=== PATIENT | female | born 1945 | race Caucasian/White ===

== ENCOUNTER 2021-02-25 17:49 | Observation (INO) | payer MEDICARE, BC, SELFPAY ==
[2021-02-25 20:10] VITALS: BP 160/57; PULSE 77; RESP 17; TEMP 36.6; O2SAT 99; BMI 37.0
[2021-02-25 20:47] LABS: Microscopic, Urine URINE MICROSCOPIC (MICROSCOPIC)
[2021-02-25 20:49] LABS: Appearance,Urine CLOUDY (Clear); Bilirubin,Urine Negative (Negative); Blood, Urine 3+ (Negative); Color,Urine YELLOW (Yellow); Glucose,Urine (UA) Negative (Negative); Ketones,Urine Negative (Negative); Leukocyte Esterase,Urine 2+ (Negative); Nitrate,Urine Negative (Negative); PH,Urine 6.5 (5.0-8.5); Protein,Urine 1+ (Negative); Urobilinogen,Urine 0.2 EU/dl (0.2)
--- NOTE | 2021-02-25 20:53 | HMH.EDGENADL ---
ED Disposition Clinical Impression: Right lower quadrant pain, Appendicolith, Cystitis Anemia Qualifiers: Anemia type: unspecified type Qualified Code(s): D64.9 - Anemia, unspecified Disposition: Admitted as Observation Condition on Discharge: Good - Critical Care Critical Care Time: No Attestation: On 02/25/21, the high probability of a clinically significant, sudden or life threatening deterioration of the following system(s) required my full and direct attention, intervention and personal management. The time I documented below is in addition to time spent performing reported procedures but includes the following listed in this critical care notation. Medical Decision Making - Regino Inquiry Pt receiving controlled substance: No Vital Signs: 02/25/21 20:10 02/25/21 22:15 02/25/21 23:00 Temperature 97.9 F Temperature Source Oral Pulse Rate 76 73 Pulse Rate [Right] 77 Respiratory Rate 17 Blood Pressure 152/53 H 155/65 H Blood Pressure [Right Arm] 160/57 H Blood Pressure Mean [Right Arm] 91 Blood Pressure Source [Right Arm] Automatic Cuff 02 Sat by Pulse Oximetry 99 93 L 100 Oxygen Delivery Method Room Air - Lab Data Lab Results 02/25/21 20:20: Urine Color Yellow, Urine Appearance Cloudy, Urine pH 6.5, Ur Specific [place] 1.010, Urine Protein 1+, Urine Glucose (UA) Negative, Urine Ketones Negative, Urine Blood 3+, Urine Nitrate Negative, Urine Bilirubin Negative, Urine Urobilinogen 0.2, Ur Leukocyte Esterase 2+ A, Urine RBC Tntc, Urine WBC Tntc, Ur Squamous Epith Cells Occasional, Urine Bacteria Trace 02/25/21 21:17: WBC 5.5, RBC 2.62 L, Hgb 7.7 L, Hct 24.4 L, MCV 92.9, MCH 29.2, MCHC 31.5 L, RDW 14.4, Plt Count 430 H, MPV 7.3 L, Neut % (Auto) 59.7, Lymph % (Auto) 27.2, [place] % (Auto) 7.2, Eos % (Auto) 5.1, Baso % (Auto) 0.9, Neut # (Auto) 3.3, Lymph # (Auto) 1.5, [place] # (Auto) 0.4, Eos # (Auto) 0.3, Baso # (Auto) 0.1 02/25/21 21:17: Sodium 125 L, Potassium 4.3, Chloride 90 L, Carbon Dioxide 28, Anion Gap 11.3, BUN 27 H, Creatinine 1.20 H, Estimated Creat Clear 62, Estimated GFR 44 L, Est GFR ( Amer) 53 L, Glucose 305 H, Calcium 8.8, Total Bilirubin 0.4, AST 35, ALT 13, Alkaline Phosphatase 46, Total Protein 6.1 L, Albumin 3.1 L, Globulin 3.0, Albumin/Globulin Ratio 1.0 L, Lipase 205 02/26/21 01:11: SARS-CoV-2 (PCR) Not detected, Influenza A Untype (PCR) Not detected, Influenza Type B (PCR) Not detected Result diagrams: 02/25/21 21:17 02/25/21 21:17 Orders (Tests/Meds): ED MEDICATIONS Generic Name Dose Route Start Last Admin Trade Name Freq PRN Reason Stop Dose Admin Ertapenem 1 gm/ Sodium 50 mls @ 100 mls/hr 02/25/21 22:30 02/25/21 22:49 Chloride IV 03/11/21 22:29 100 mls/hr Q24H HAYLEY Administration ORDERS Category Date Time Status Urine Culture Stat Micro 02/25/21 20:20 Received - CT Data CT Scan: Abdomen, Pelvis Time Received: 22:[address] Reviewed: Yes: I have viewed the radiologist's interpretation Findings Narrative: PROCEDURE INFORMATION: Exam: CT Abdomen And Pelvis Without Contrast Exam date and time: 02/25/2021 9:05 PM Age: 75 years old Clinical indication: Other: Hematuria; Prior surgery; Surgery date: 6+ months; Surgery type: Gb, hysterectomy, hernia, vascular stents; Additional info: Hematuria, lower abdo pain, stage 3 rf TECHNIQUE: Imaging protocol: Computed tomography of the abdomen and pelvis without contrast. Radiation optimization: All CT scans at this facility use at least one of these dose optimization techniques: automated exposure control; mA and/or kV adjustment per patient size (includes targeted exams where dose is matched to clinical indication); or iterative reconstruction. COMPARISON: No relevant prior studies available. FINDINGS: Lungs: No mass/infiltrate at either lung base. No pleural effusion. Prominent coronary artery calcification. There is atheromatous calcification of the
[2021-02-25 20:59] LABS: Bacteria,Urine Trace /lpf; RBC,Urine TNTC #/hpf (0-3); Squamous Epithelial Cell,Urine Occasional #/hpf (0-5); WBC,Urine TNTC #/hpf (0-3)
--- NOTE | 2021-02-25 21:05 | CT_ITS ---
PROCEDURE INFORMATION: Exam: CT Abdomen And Pelvis Without Contrast Exam date and time: 02/25/2021 9:05 PM Age: 75 years old Clinical indication: Other: Hematuria; Prior surgery; Surgery date: 6+ months; Surgery type: Gb, hysterectomy, hernia, vascular stents; Additional info: Hematuria, lower abdo pain, stage 3 rf TECHNIQUE: Imaging protocol: Computed tomography of the abdomen and pelvis without contrast. Radiation optimization: All CT scans at this facility use at least one of these dose optimization techniques: automated exposure control; mA and/or kV adjustment per patient size (includes targeted exams where dose is matched to clinical indication); or iterative reconstruction. COMPARISON: No relevant prior studies available. FINDINGS: Lungs: No mass/infiltrate at either lung base. No pleural effusion. Prominent coronary artery calcification. There is atheromatous calcification of the fibroannulus of the aortic and mitral valves. Atheromatous calcification of the descending thoracic aorta. Liver: The liver is normal in size and attenuation. No intrahepatic biliary dilitation. Gallbladder and bile ducts: Cholecystectomy noted. No evidence of extrahepatic biliary dilatation. Pancreas: Normal. No ductal dilation. Spleen: Normal. No splenomegaly. Adrenal glands: Normal. No mass. Kidneys and ureters: Normal. No hydronephrosis. Stomach and bowel: Unremarkable. No obstruction. No mucosal thickening. Small bowel mesentery is normal. Appendix: There is a calcific density identified at the base of the appendix which could represent appendicoliths that said, the appendix does not appear enlarged. There is no evidence of infiltration of mesoappendix. Intraperitoneal space: Unremarkable. No free air. No significant fluid collection. Vasculature: Prominent atheromatous change of the abdominal aorta, portions of the visceral arteries, iliac, and common femoral arteries. No abdominal aortic aneurysm. Inferior vena cava filter is in place. Lymph nodes: Unremarkable. No enlarged lymph nodes. Urinary bladder: There is air present within the lumen of the bladder. Exact etiology indeterminate. The possibility of recent catheterization is considered. Reproductive: The uterus is not visualized, compatible with prior hysterectomy. Bones/joints: Prominent degenerative changes of the mid and lower lumbar spine. No acute fracture. Soft tissues: There are clips or sutures identified within the anterior abdominal wall compatible with prior abdominal surgery. IMPRESSION: 1. There is an appendicoliths suspect at the base of the appendix. That said, the appendix does not appear enlarged. There is no infiltration of the adjacent mesentery. 2. There is air present within the lumen of the bladder. The possibility of recent bladder catheterization is considered. 3. Prior abdominal surgery has been performed. 4. Hysterectomy is noted. 5. Cholecystectomy is noted. COMMENTS: For patients with an IVC filter, recommend assessment for a management plan for the patient's IVC filter. If there is no established management plan, recommend referral to an interventional clinician on a nonemergent basis for evaluation.
[2021-02-25 21:30] LABS: Basophils # 0.1 K/mm3 (0-0.2); Basophils % 0.9 % (0.1-2.0); Eosinophils # 0.3 K/mm3 (0.0-0.4); Lymphocytes # 1.5 K/mm3 (0.7-4.5); Monocytes # 0.4 K/mm3 (0.1-1.0); Red Blood Count 2.62 M/mm3 (4.20-5.40); Red Cell Distribution Width 14.4 % (11.5-17.5)
[2021-02-25 21:34] LABS: Chloride 90 mmol/L (98-107); Eosinophils % 5.1 % (0.1-12.0); Hemoglobin 7.7 g/dL (12.2-16.2); Lymphocytes % 27.2 % (10-50); Mean Corpuscular HGB Conc 31.5 g/dL (31.8-35.4); Mean Corpuscular Hemoglobin 29.2 pg (27.0-31.2); Mean Corpuscular Volume 92.9 fl (81-99); Mean Platelet Volume 7.3 fl (7.4-10.4); Monocytes % 7.2 % (1.7-9.3); Neutrophils # 3.3 K/mm3 (1.8-7.8); Neutrophils % 59.7 % (37.0-80.0); Platelet Count 430 K/mm3 (142-424); Potassium 4.3 mmoL/L (3.5-5.1); Sodium 125 mmol/L (136-145); White Blood Count 5.5 K/mm3 (4.8-10.8)
[2021-02-25 21:35] LABS: Hematocrit 24.4 % (37.0-47.0)
[2021-02-25 21:37] LABS: Alanine Aminotransferase 13 U/L (12-78); Alkaline Phosphatase 46 U/L (38-126); Anion Gap 11.3 mEq/L (5-15); Aspartate Amino Transferase 35 U/L (14-36); Bilirubin,Total 0.4 mg/dl (0.2-1.3); Blood Urea Nitrogen 27 mg/dl (7-17); Calcium 8.8 mg/dl (8.4-10.2); Carbon Dioxide 28 mmol/L (22.0-30.0); Creatinine Clearance Estimated 62 mL/min (50-200); Estimated Glomerular Filt Rate 44 ml/min (>60); GFR (African American) 53 ML/MIN (>60); Glucose 305 mg/dl (74-100); Lipase 205 U/L (23-300)
[2021-02-25 21:38] LABS: Albumin Level 3.1 g/dl (3.5-5.0); Total Protein,Serum 6.1 g/dl (6.3-8.2)
--- NOTE | 2021-02-25 22:11 | PC.NURSE ---
[facility] called request for D/C summary from November
[2021-02-25 22:15] VITALS: BP 152/53; PULSE 76; O2SAT 93
[2021-02-25 23:00] VITALS: BP 155/65; PULSE 73; O2SAT 100
[2021-02-25 23:30] VITALS: BP 157/60; PULSE 74; O2SAT 95
[2021-02-26] VITALS (12 sets, daily range): BP systolic 134–175; BP diastolic 36–69; PULSE 68–86; RESP 17–18; TEMP 36.5–37.3; O2SAT 98–100; BMI 36.1
[2021-02-26 01:14] LABS: Coronavirus 19, PCR Not Detected (NotDetected); Influenza A, PCR Not Detected (NotDetected); Influenza B, PCR Not Detected (NotDetected)
--- NOTE | 2021-02-26 01:16 | PC.NURSE ---
DR. LARSON ON PHONE WITH SURGERY
--- NOTE | 2021-02-26 01:27 | PC.NURSE ---
DR. LARSON ON PHONE WITH DR. VIDALES
--- NOTE | 2021-02-26 02:30 | PC.NURSE ---
patient up to floor via wheelchair
[2021-02-26 06:22] LABS: POC Glucose,Bedside 249 (70-110)
--- NOTE | 2021-02-26 07:04 | HMH.PHAVTE ---
[facility] Pharmacy VTE Monitoring - Patient Demographics Admission date: 02/26/21 Report Date: 02/26/21 Time: 07:04 Allergies/Adverse Reactions: Patient Allergies levofloxacin [From Levaquin] Adverse Reaction (Verified 02/26/21 03:03) Hives lisinopril Adverse Reaction (Verified 02/26/21 03:04) Migraine NSAIDS (Non-Steroidal Anti-Inflamma Adverse Reaction (Verified 02/26/21 03:16) Height: 1.6 m Weight: 92.675 kg Patient Problems: Current Active Problems Right lower quadrant pain (Acute) Appendicolith (Acute) Cystitis (Acute) Anemia (Acute) - VTE Risk Labs: VTE Related Lab Results Hgb 7.7 g/dL (12.2-16.2) L 02/25/21 21:17 Hct 24.4 % (37.0-47.0) L 02/25/21 21:17 Plt Count 430 K/mm3 (142-424) H 02/25/21 21:17 BUN 27 mg/dl (7-17) H 02/25/21 21:17 Creatinine 1.20 mg/dl (0.52-1.04) H 02/25/21 21:17 Estimated Creat Clear 62 mL/min (50-200) 02/25/21 21:17 VTE Score: 11 VTE Risk Level: Moderate Risk - Prophylaxis VTE Prophylaxis Ordered?: Yes Types of VTE Prophylaxis: TEDS Knee High, Pharmacological Location of Applied Device: Bilateral Lower Extremeties Pharmacologic Type: Other (XARELTO)
[2021-02-26 07:32] LABS: Basophils # 0.1 K/mm3 (0-0.2); Basophils % 1.1 % (0.1-2.0); Eosinophils # 0.3 K/mm3 (0.0-0.4); Eosinophils % 5.8 % (0.1-12.0); Hemoglobin 7.4 g/dL (12.2-16.2); Lymphocytes # 1.3 K/mm3 (0.7-4.5); Lymphocytes % 28.7 % (10-50); Mean Corpuscular HGB Conc 32.1 g/dL (31.8-35.4); Mean Corpuscular Hemoglobin 29.9 pg (27.0-31.2); Mean Corpuscular Volume 93.1 fl (81-99); Mean Platelet Volume 7.6 fl (7.4-10.4); Monocytes # 0.3 K/mm3 (0.1-1.0); Monocytes % 6.5 % (1.7-9.3); Neutrophils # 2.7 K/mm3 (1.8-7.8); Neutrophils % 57.9 % (37.0-80.0); Platelet Count 416 K/mm3 (142-424); Red Blood Count 2.47 M/mm3 (4.20-5.40); Red Cell Distribution Width 14.6 % (11.5-17.5); White Blood Count 4.7 K/mm3 (4.8-10.8)
--- NOTE | 2021-02-26 09:03 | HMH.GSCON ---
*Admission Date: 02/26/21 *Reason for consult:: Right lower quadrant pain *History of present illness: Patient is a 75-year-old female from [place]. She has had recent hospitalization with urinary tract infection in [place]. She states that yesterday she developed right pelvic tenderness and pain. She was seen and evaluated in the emergency department. She underwent CT scan of the abdomen pelvis without any contrast whatsoever. This revealed no evidence of any thickening or inflammation of the appendix. There is calcification possibly at the base of the appendix potentially consistent with appendicolith. She was admitted for inpatient management and surgical consultation. Review of Systems - Review of Systems Review of systems:: pertinent systems reviewed and negative unless documented below - *Neurologic Reports weakness [facility] History I have reviewed the patient's past medical history: Yes Medical History: Reports:: Cancer, Coronary Artery Disease, Deep Vein Thrombosis, Diabetes Mellitus Type 2, Hyperlipidemia, Hypertension, Palpitations Denies:: Diabetes Mellitus Type 1, MRSA *Have you ever received a pneumonia vaccine?: Yes *Have you received a flu vaccine this season?: Yes Other Medical History: Reports: Arthritis Other Surgeries: Yes: Angioplasty, Cancer Surgery, Cardiac Catheterization, Cholecystectomy, Hernia Repair, Hysterectomy-Total Amputation: No Fractures: No - *Social History Smoking Status: Never smoker Alcohol Intake: never *Occupational Status:: retired *Travel in the last 8 weeks: None Family Hx:: Cancer, Hyperlipidemia, Hypertension, Stroke Meds Home Medications Medication Instructions Recorded Confirmed Type carvedilol 12.5 mg tablet 12.5 mg PO BID 07/21/17 02/26/21 History citalopram 40 mg tablet 40 mg PO DAILY tab 07/21/17 02/26/21 History ergocalciferol (vitamin D2) 1,250 50,000 unit PO QWEEK 07/21/17 02/26/21 History mcg (50,000 unit) capsule furosemide 20 mg tablet 40 mg PO DAILY tab 07/21/17 02/26/21 History insulin aspar prt-insulin aspart 20 unit SUB-Q AC ml 07/21/17 02/26/21 History 100 unit/mL (70-30) subcutaneous soln metoclopramide HCl 10 mg tablet 10 mg PO TID 07/21/17 02/26/21 History omeprazole 40 mg capsule,delayed 40 mg PO DAILY cap 07/21/17 02/26/21 History release Isosorbide Mononitrate [Imdur 30mg 30 mg PO DAILY 02/26/21 02/26/21 History ER tablet] Ranolazine [Ranexa] 1,000 mg PO Q12H 02/26/21 02/26/21 History Rivaroxaban [Xarelto] 20 mg PO DAILY 02/26/21 02/26/21 History Spironolactone [Spironolactone 25 mg PO DAILY 02/26/21 02/26/21 History 25mg Tab] Allergies Allergy/AdvReac Type Severity Reaction Status Date / Time levofloxacin [From Levaquin] AdvReac Hives Verified 02/26/21 03:03 lisinopril AdvReac Migraine Verified 02/26/21 03:04 NSAIDS (Non-Steroidal AdvReac Verified 02/26/21 03:16 Anti-Inflamma Exam Vital signs and Labs for Last 24 Hours: Temp Pulse Resp BP Pulse Ox 97.7 F 68 18 145/59 H 100 02/26/21 07:31 02/26/21 07:31 02/26/21 07:31 02/26/21 07:31 02/26/21 07:31 Laboratory Results - last 24 hr 02/25/21 20:20: Urine Color Yellow, Urine Appearance Cloudy, Urine pH 6.5, Ur Specific [place] 1.010, Urine Protein 1+, Urine Glucose (UA) Negative, Urine Ketones Negative, Urine Blood 3+, Urine Nitrate Negative, Urine Bilirubin Negative, Urine Urobilinogen 0.2, Ur Leukocyte Esterase 2+ A, Urine RBC Tntc, Urine WBC Tntc, Ur Squamous Epith Cells Occasional, Urine Bacteria Trace 02/25/21 21:17: WBC 5.5, RBC 2.62 L, Hgb 7.7 L, Hct 24.4 L, MCV 92.9, MCH 29.2, MCHC 31.5 L, RDW 14.4, Plt Count 430 H, MPV 7.3 L, Neut % (Auto) 59.7, Lymph % (Auto) 27.2, [place] % (Auto) 7.2, Eos % (Auto) 5.1, Baso % (Auto) 0.9, Neut # (Auto) 3.3, Lymph # (Auto) 1.5, [place] # (Auto) 0.4, Eos # (Auto) 0.3, Baso # (Auto) 0.1 02/25/21 21:17: Sodium 125 L, Potassium 4.3, Chloride 90 L, Carbon Dioxide 28, Anion Gap 11.3, BUN 27 H, Creatinine 1.20 H, E
--- NOTE | 2021-02-26 10:57 | HMH.HP ---
*Admission Date: 02/26/21 *Chief complaint: abd pain *History of present illness: this patient presented to the ed with ongoing abd pain Pt states she has been bleeding from her urethra for > 2wk. She saw her PCP about it and was placed on ABX for 10 days, although it has continued. She states occiasionaly she passes small clots. She has not been back to see her PCP despite the continued bleeding. She reports stage 3 kidney failure. Pt also states she was in-pt at [facility] recently for a UTI. Pt reports weakness. Denies fever, chills, n/v/d. States she has been having hematuria for a few weeks. It does not occur every time she urinates. She developed a lower abdominal pain today, which is new. She has dysuria. Denies fever, vomiting, or diarrhea. She said that she felt weak today. She says that she has a history of stage III kidney failure. She was admitted to [facility] in November for severe UTI. She says that she was severely anemic with a hemoglobin of 6.5 and required transfusion. She had upper and lower endoscopy which was negative. She had a CAT scan of her abdomen and she does not think anything significant was found. She her hemoglobin at discharge was 7.8. She [facility] but does not yet know the results. pt admitted with uti and placed on abx [facility] History I have reviewed the patient's past medical history: Yes Medical History: Reports:: Cancer, Coronary Artery Disease, Deep Vein Thrombosis, Diabetes Mellitus Type 2, Hyperlipidemia, Hypertension, Palpitations Denies:: Diabetes Mellitus Type 1, MRSA *Have you ever received a pneumonia vaccine?: Yes *Have you received a flu vaccine this season?: Yes Other Medical History: Reports: Arthritis Other Surgeries: Yes: Angioplasty, Cancer Surgery, Cardiac Catheterization, Cholecystectomy, Hernia Repair, Hysterectomy-Total Amputation: No Fractures: No - *Social History Smoking Status: Never smoker Alcohol Intake: never *Occupational Status:: retired *Travel in the last 8 weeks: None Family Hx:: Cancer, Hyperlipidemia, Hypertension, Stroke Review of Systems - Review of Systems Review of systems:: pertinent systems reviewed and negative unless documented below - Constitutional Reports weakness, Denies fever(s) - Eyes Denies change in vision - ENT Denies sore throat - *Cardiovascular Denies chest pain at rest - *Respiratory Denies cough - *Gastrointestinal Reports abdominal pain, Reports nausea, Reports vomiting - *Genitourinary Denies blood in urine - *Musculoskeletal Denies joint pain - Integumentary/Breasts Denies rash - *Neurologic Reports weakness, Denies localized weakness, Denies seizure-like activity - Psychiatric Denies confusion Meds Home Medications Medication Instructions Recorded Confirmed Type carvedilol 12.5 mg tablet 12.5 mg PO BID 07/21/17 02/26/21 History ergocalciferol (vitamin D2) 1,250 50,000 unit PO WEEKLY 07/21/17 02/26/21 History mcg (50,000 unit) capsule metoclopramide HCl 10 mg tablet 10 mg PO ACHS 07/21/17 02/26/21 History Alendronate Sodium [Fosamax 70mg 70 mg PO WEEKLY 02/26/21 02/26/21 History Tablet] Aspirin [Aspirin 81mg EC Tab] 81 mg PO DAILY 02/26/21 02/26/21 History Atorvastatin Calcium [Lipitor 80mg 80 mg PO HS 02/26/21 02/26/21 History Tab] Cyclobenzaprine HCl 5 mg PO BIDP PRN 02/26/21 02/26/21 History [Cyclobenzaprine 5mg Tab*] Escitalopram Oxalate 10 mg PO DAILY 02/26/21 02/26/21 History Fenofibrate Nanocrystallized 145 mg PO DAILY 02/26/21 02/26/21 History [Fenofibrate] Furosemide [Furosemide 40MG tAB*] 40 mg PO DAILY 02/26/21 02/26/21 History Insulin Aspart Prot/Insuln Asp 20 unit SQ AC 02/26/21 02/26/21 History [Novolog Mix 70-30 Vial] Isosorbide Mononitrate [Imdur 30mg 30 mg PO DAILY 02/26/21 02/26/21 History ER tablet] Levothyroxine Sodium 50 mcg PO DAILY 02/26/21 02/26/21 History [Levothyroxine 50mcg (0.05mg) Tab] Loratadine
[2021-02-26 11:17] LABS: Iron 36 ug/dL (37-170)
[2021-02-26 11:26] LABS: Total Iron Binding Capacity 305 ug/dL (265-497)
[2021-02-26 11:40] LABS: POC Glucose,Bedside 122 (70-110)
--- NOTE | 2021-02-26 15:05 | PC.NURSE ---
NO ACUTE CHANGES. SHE IS AOX4, HAS NOT C/O ABD PAIN TODAY, STANDBY ASSIST TO [facility] FOR ELIMINATION. VITAL SIGNS HAVE REMAINED STABLE. SHE DENIES N/V/D. NO NEEDS AT THIS TIME.
--- NOTE | 2021-02-26 15:34 | HMH.CONS ---
*Admission Date: 02/26/21 *Reason for consult:: Patient referred for ear into the bladder on CT scan *History of present illness: Patient is a 75-year-old white female referred for CT findings of a year. She presented to the emergency room yesterday with right lower quadrant pain and also stated some intermittent hematuria over the last few weeks. She states that color of the blood is bright red and states some tiny clots at times. She states that she experiences blood in her urine when she has a urinary tract infection and she has had several since November. Her symptoms of urinary tract infection is dysuria. She does state that she has some pneumaturia as well. Patient states she had upper and lower endoscopy at [facility] for anemia in November. Her white blood cell count is normal and her creatinine is 1.2. Her urinalysis shows 3+ blood and 2+ leukocytes. She is on Invanz. Her CT was reviewed and there is no evidence of any bowel thickening close of the bladder scan is without contrast. She has not had cystoscopy. Patient is a 75-year-old female from [place]. She has had recent hospitalization with urinary tract infection in [place]. She states that yesterday she developed right pelvic tenderness and pain. She was seen and evaluated in the emergency department. She underwent CT of the abdomen pelvis without any contrast whatsoever. This revealed no evidence of any thickening or inflammation of the appendix. There is calcification possibly at the base of the appendix potentially consistent with appendicolith. She was admitted for inpatient management and surgical consultation. [facility] History Medical History: Reports:: Cancer, Coronary Artery Disease, Deep Vein Thrombosis, Diabetes Mellitus Type 2, Hyperlipidemia, Hypertension, Palpitations Denies:: Diabetes Mellitus Type 1, MRSA *Have you ever received a pneumonia vaccine?: Yes *Have you received a flu vaccine this season?: Yes Other Medical History: Reports: Arthritis Other Surgeries: Yes: Angioplasty, Cancer Surgery, Cardiac Catheterization, Cholecystectomy, Hernia Repair, Hysterectomy-Total Amputation: No Fractures: No - *Social History Smoking Status: Never smoker Alcohol Intake: never *Occupational Status:: retired *Travel in the last 8 weeks: None Family Hx:: Cancer, Hyperlipidemia, Hypertension, Stroke Review of Systems - *Neurologic Reports weakness Meds Home Medications Medication Instructions Recorded Confirmed Type carvedilol 12.5 mg tablet 12.5 mg PO BID 07/21/17 02/26/21 History ergocalciferol (vitamin D2) 1,250 50,000 unit PO WEEKLY 07/21/17 02/26/21 History mcg (50,000 unit) capsule metoclopramide HCl 10 mg tablet 10 mg PO ACHS 07/21/17 02/26/21 History Alendronate Sodium [Fosamax 70mg 70 mg PO WEEKLY 02/26/21 02/26/21 History Tablet] Aspirin [Aspirin 81mg EC Tab] 81 mg PO DAILY 02/26/21 02/26/21 History Atorvastatin Calcium [Lipitor 80mg 80 mg PO HS 02/26/21 02/26/21 History Tab] Cyclobenzaprine HCl 5 mg PO BIDP PRN 02/26/21 02/26/21 History [Cyclobenzaprine 5mg Tab*] Escitalopram Oxalate 10 mg PO DAILY 02/26/21 02/26/21 History Fenofibrate Nanocrystallized 145 mg PO DAILY 02/26/21 02/26/21 History [Fenofibrate] Furosemide [Furosemide 40MG tAB*] 40 mg PO DAILY 02/26/21 02/26/21 History Insulin Aspart Prot/Insuln Asp 20 unit SQ AC 02/26/21 02/26/21 History [Novolog Mix 70-30 Vial] Isosorbide Mononitrate [Imdur 30mg 30 mg PO DAILY 02/26/21 02/26/21 History ER tablet] Levothyroxine Sodium 50 mcg PO DAILY 02/26/21 02/26/21 History [Levothyroxine 50mcg (0.05mg) Tab] Loratadine [Claritin 10mg 10 mg PO DAILY 02/26/21 02/26/21 History Tablet] Omeprazole [Omeprazole 20mg 20 mg PO DAILY 02/26/21 02/26/21 History Capsule] Potassium Chloride [Klor-con 20 20 meq PO DAILY 02/26/21 02/26/21 History mEq tablet
[2021-02-26 20:22] LABS: POC Glucose,Bedside 257 (70-110)
[2021-02-26 20:22] LABS: POC Glucose,Bedside 125 (70-110)
[2021-02-27] VITALS (15 sets, daily range): BP systolic 101–166; BP diastolic 52–75; PULSE 67–96; RESP 16–20; TEMP 36.6–36.9; O2SAT 96–100; BMI 36.6
--- NOTE | 2021-02-27 03:44 | PC.NURSE ---
No acute changes t/o shift. Pt is A/O x4. Pt denies any pain t/o shift. Pt has been NPO since 00:00. Remains on room air. VSS, call light within reach.
[2021-02-27 06:19] LABS: POC Glucose,Bedside 168 (70-110)
[2021-02-27 06:45] LABS: Basophils % 0.7 % (0.1-2.0); Eosinophils # 0.2 K/mm3 (0.0-0.4); Eosinophils % 4.7 % (0.1-12.0); Hematocrit 23.2 % (37.0-47.0); Hemoglobin 7.4 g/dL (12.2-16.2); Lymphocytes # 1.8 K/mm3 (0.7-4.5); Lymphocytes % 36.6 % (10-50); Mean Corpuscular HGB Conc 31.9 g/dL (31.8-35.4); Mean Corpuscular Hemoglobin 29.7 pg (27.0-31.2); Mean Corpuscular Volume 93.1 fl (81-99); Mean Platelet Volume 8.9 fl (7.4-10.4); Monocytes # 0.3 K/mm3 (0.1-1.0); Monocytes % 6.3 % (1.7-9.3); Neutrophils # 2.5 K/mm3 (1.8-7.8); Neutrophils % 51.8 % (37.0-80.0); Platelet Count 451 K/mm3 (142-424); Red Blood Count 2.49 M/mm3 (4.20-5.40); White Blood Count 4.8 K/mm3 (4.8-10.8)
[2021-02-27 07:01] LABS: Anion Gap 12.2 mEq/L (5-15); Blood Urea Nitrogen 26 mg/dl (7-17); Calcium 8.5 mg/dl (8.4-10.2); Carbon Dioxide 28 mmol/L (22.0-30.0); Chloride 93 mmol/L (98-107); Creatinine Clearance Estimated 56 mL/min (50-200); Estimated Glomerular Filt Rate 40 ml/min (>60); GFR (African American) 48 ML/MIN (>60); Glucose 155 mg/dl (74-100); Potassium 4.2 mmoL/L (3.5-5.1); Sodium 129 mmol/L (136-145)
--- NOTE | 2021-02-27 08:00 | CA_ITS ---
APPROVED REPORT EXAM: Comprehensive 2D, Doppler, and color-flow Echocardiogram Newspaper Correspondent: Shameka Bradley RT(R) Ht: 5 ft 3 in Wt: 204lbs BSA: 1.95 BP: 145/59 mmHg Indications: UTI, Murmur, HTN, DM, palpitations, hyperlipidemia, family history of HD, CHF, stage III kidney failure, CAD 2D Dimensions LVOT 2.02 cm (M/F) 1.5-2.5 LVEF (Stark's) 33.70 % F: 54 - 74 LV Volume 156.00 mL F: 46 - 106 LV Volume Index 80.00 mL/m2 F: 29 - 61 LA Volume 55.10 mL LA Volume Index 28.25 mL/m2 (M/F) 16-34 M-Mode Dimensions RVDd 2.83 cm (0.9-2.6) LA Diam 3.91 cm (1.9-4.0) LVDd 5.26 cm (3.5-5.7) Ao Diam 2.33 cm (2.0-3.7) LVDs 3.83 cm (3.5-5.7) IVSd 1.04 cm (0.6-1.1) PWd 0.82 cm (0.6-1.1) EF (Teich) 52.60% FS 27.20% EDV (Teich) 133.00 mL ESV (Teich) 63.10 mL LV Diastology E Decel Time 163.00 (160-240 msec) E/A Ratio 1.8 MED E' 6.50 (< 7 cm/sec) E'/MED E' Ratio 20.12 (>14) LAT E' 7.10 (<10 cm/sec) E/LAT E' Ratio 18.42 (>14) Aortic Valve LVOT Max 84.00 (70-110 cm/s) LVOT VTI 19.33 cm AoV Peak Ulices. 695.00 (50-130 cm/s) AO Peak GR. 193.90 mmHg AO Mean GR. 95.50 (<5 mmHg) AO VTI 156.82 (18-25 cm) SAM (VTI) 0.40 (2.5-4.5 cm2) Mitral Valve MV E Max Ulices. 131.00 (40-130 cm/s) MV A Velocity 72.00 (40-130 cm/s) E/A Ratio 1.83 MV Decel. Time 163.00 (160-240 ms) MV PHT 48.00 ms Left Ventricle Left atrium is mildly enlarged, left ventricle is normal size, mild concentric left ventricular hypertrophy, visually estimated ejection fraction 55% with no regional wall motion abnormality, grade 1 diastolic dysfunction seen with tissue Doppler evidence of raise left atrial pressure. Right Ventricle Right atrium and right ventricle mildly enlarged with normal contractility. Aortic Valve Aortic valve is thickened and calcified with severe restriction in the leaflet mobility. The mean gradient across valve is 96mmHg, valve area is 0.4 cm??? represents critical aortic stenosis. There is no significant aortic insufficiency seen. Mitral Valve Mitral valve leaflets are minimally thickened and calcified, there is no mitral inflow obstruction, there is mild mitral regurgitation. Tricuspid Valve Tricuspid valve grossly normal, there is mild tricuspid regurgitation, tricuspid regurgitation jet velocity is inadequate for calculation of the right ventricular systolic pressure. Pulmonic Valve Pulmonic valve is poorly visualized. Great Vessels Aortic root is normal size. Inferior vena cava is poorly visualized. Pericardium No significant pericardial effusion noted Conclusion 1. Biatrial enlargement, normal left ventricular size, mild concentric left ventricular hypertrophy, visually estimated ejection fraction 55% with no regional wall motion abnormality, grade 1 diastolic dysfunction seen with tissue Doppler evidence of raise left atrial pressure. 2. Thickened and calcified aortic valve with critical aortic stenosis, valve area is 0.4 cm???. There is no significant aortic insufficiency seen. 3. Mild mitral and tricuspid regurgitation. 4. No significant pericardial effusion noted. Electronically signed by : Jevon Tadeo MD 02/27/2021 19:05:02
--- NOTE | 2021-02-27 09:32 | HMH.OTEV ---
OT Inpatient Evaluation Rehab OT IP Evaluation Start: 02/27/21 08:18 Freq: ONCE Status: Complete Protocol: Document 02/27/21 09:27 [facility] CENTERWill[facility] (Rec: 02/27/21 09:32 [facility] [id number]) Rehab OT IP Assessment Subjective History Pt oriented x 3 on arrival. Pt agreeable to engage in therapy evaluation. Pt was admitted via ED on 02/26/21 due to ongoing abd pain and has been bleeding from urethra for more than 2 weeks. Pt has had a previous stay at [place] in November for severe UTI. Pt has a past medical history of Cancer, Coronary Artery Disease, Deep Vein Thrombosis, Diabetes Mellitus Type 2, Hyperlipidemia, Hypertension, Palpitations. Pt reports prior to being in the hospital she was living at home with her son and daughter in law. Pt claims she was independent with all ADLS. She was dependent upon family to complete IADLS. Pt uses a rollator at all times during ambulation. She does not have steps in her home. Subjective I could do what I needed to around the house. Objective Patient Orientation Person,Place,Birthday,Year Upper Extremity Gross ROM WFL Bed Mobility bed mobility-scooting,bed mobility - supine/sit,bed mobility - rolling Assist Level Supervision/Stand by Transfer Training Sit/Stand Transfer Assist Level Supervision/Stand by Chair Transfer Ability Supervision/Stand by Chair Transfer Technique Sit to/from Ambulatory Chair Transfer Assistive Devices Rolling Walker Performing Toilet Hygiene Ability Standby Assistance Overall Commode/Toilet Transfer Ability Standby Assistance Commode/Toilet Transfer Technique Sit to/from Ambulatory Rehab OT IP prob,goals,plan Problems Date of Evaluation: 02/27/21 Rehab Potential Rehab Potential Innapropriate for Skilled Therapy Discharge Plan OT Discharge Plan At this time, pt appears to be at baseline functionally. Pt is s
--- NOTE | 2021-02-27 10:23 | HMH.PTEV ---
Physical Therapy Evaluation Rehab PT IP Evaluation Start: 02/27/21 08:18 Freq: .once Status: Complete Protocol: Document 02/27/21 10:12 VALENTIN (Rec: 02/27/21 10:23 VALENTIN [id number]) Subjective/History History History This is the initial IP PT evalaution for Sarah Gongora. this patient presented to the ed with ongoing abd pain Pt states she has been bleeding from her urethra for > 2wk. She saw her PCP about it and was placed on ABX for 10 days, although it has continued. She states occiasionaly she passes small clots. She has not been back to see her PCP despite the continued bleeding . She reports stage 3 kidney failure. Pt also states she was in-pt at [place] recently for a UTI. Pt reports weakness. Denies fever, chills, n/v/d. States she has been having hematuria for a few weeks. It does not occur every time she urinates. She developed a lower abdominal pain today, which is new. She has dysuria. Denies fever, vomiting, or diarrhea. She says that she has a history of stage III kidney failure. Subjective Subjective Pt has no complaints today other than wanting food and drink which she can not have because she is scheduled for procedure Rehab PT IP Eval Objective Appearance Patient Behavior Appropriate,Cooperative Patient Orientation Person,Place,Time Difficulty following instructions none Speech Pattern Clear,Appropriate Ambulation Patient Able to Ambulate Yes Ambulation Observation IP General Gait Pattern Observation Shuffling Step Ambulation Distance (feet) 60 Ambulation Assistive Device Rolling Walker Ambulation Ability Supervision/Stand by Balance Ability to Arise Able, uses arms to help Sitting Balance Steady, safe Standing Balance Steady, wide stance Dynamic Sitting Balance Ability Good Dynamic Standing Balance Ability Fair
--- NOTE | 2021-02-27 10:54 | PC.NURSE ---
Pt off floor at this time to surgery.
--- NOTE | 2021-02-27 11:15 | P.PN_ITS ---
Subjective Narrative: Patient still does complain of right pelvic pain. She has been seen by urology. Plan is for cystoscopy today. Progress Note: A&P (1) Anemia Status: Acute (2) Pneumaturia Status: Acute (3) Coronary arteriosclerosis Status: Chronic (4) Diabetes mellitus Status: Chronic (5) History of DVT (deep vein thrombosis) Status: Chronic (6) Hyponatremia Status: Acute (7) Renal insufficiency Status: Acute (8) UTI (urinary tract infection) Status: Acute (9) S/P IVC filter Status: Acute (10) Obesity (BMI 30-39.9) Status: Acute Assessment and Plan for All Diagnoses:: Etiology of her right lower quadrant pain seems to be urologic. Possible colovesical fistula. Cystoscopy today. Exam Vital signs and Labs for Last 24 Hours: Temp Pulse Resp BP Pulse Ox 98.5 F 67 17 136/57 L 98 02/27/21 07:46 02/27/21 07:46 02/27/21 07:46 02/27/21 07:46 02/27/21 07:46 Laboratory Results - last 24 hr 02/25/21 20:20: Urine Color Yellow, Urine Appearance Cloudy, Urine pH 6.5, Ur Specific [place] 1.010, Urine Protein 1+, Urine Glucose (UA) Negative, Urine Ketones Negative, Urine Blood 3+, Urine Nitrate Negative, Urine Bilirubin Negative, Urine Urobilinogen 0.2, Ur Leukocyte Esterase 2+ A, Urine RBC Tntc, Urine WBC Tntc, Ur Squamous Epith Cells Occasional, Urine Bacteria Trace 02/26/21 07:13: Iron 36 L, TIBC 305, Iron Saturation 11.98978 L 02/26/21 11:26: POC Glucose 122 H 02/26/21 17:31: POC Glucose 125 H 02/26/21 19:58: POC Glucose 257 H 02/27/21 05:44: POC Glucose 168 H 02/27/21 06:16: WBC 4.8, RBC 2.49 L, Hgb 7.4 L, Hct 23.2 L, MCV 93.1, MCH 29.7, MCHC 31.9, RDW 15.0, Plt Count 451 H, MPV 8.9, Neut % (Auto) 51.8, Lymph % (Auto) 36.6, [place] % (Auto) 6.3, Eos % (Auto) 4.7, Baso % (Auto) 0.7, Neut # (Auto) 2.5, Lymph # (Auto) 1.8, [place] # (Auto) 0.3, Eos # (Auto) 0.2, Baso # (Auto) 0.0 02/27/21 06:16: Sodium 129 L, Potassium 4.2, Chloride 93 L, Carbon Dioxide 28, Anion Gap 12.2, BUN 26 H, Creatinine 1.30 H, Estimated Creat Clear 56, Estimated GFR 40 L, Est GFR ( Amer) 48 L, Glucose 155 H, Calcium 8.5 I & O for Last 24 hours: Intake & Output 02/24/21 02/25/21 02/26/21 02/27/21 11:59 11:59 11:59 11:59 Intake Total 0 / 0 240 / 240 Output Total 0 / 0 Balance 0 / 0 240 / 240 Weight 204 lb 5 oz 206 lb 9.6 oz Microbiology Reports for the Last 24 Hours: Microbiology 02/25/21 20:20 Urine,Clean Catch Urine Culture - Preliminary Gram Negative Rods
--- NOTE | 2021-02-27 13:07 | HMH.OPNOTE ---
Date of procedure: 02/27/21 Pre-op Diagnosis:: Pneumaturia/hematuria Post-op Diagnosis:: Hemorrhagic cystitis Procedure performed:: Cystoscopy Surgeon:: Michael Mckeon MD Anesthesia: local Estimated blood loss (mL): 0 Clinical Note:: Patient is a 75-year-old white female admitted with right lower quadrant pain and hematuria. CT scan showed air-fluid level in the bladder and she does complain of pneumaturia. She presents for cystoscopic evaluation. Previous EGD and colonoscopy at [facility] reportedly normal. Operative findings:: Cystoscopy reveals diffuse erythema consistent with hemorrhagic cystitis. There is no evidence of a fistula. Operative note:: Patient taken to the cystoscopy suite after informed consent was obtained. On the stretcher she was placed into the frog-leg position and prepped and draped in the standard surgical fashion. The flexible cystoscope was then placed into the urethral meatus and the bladder examined in a systematic fashion. There was diffuse erythema and petechial hemorrhages. There is no evidence of bladder tumor or fistulous. The ureteral orifices were difficult to visualize due to the diffuse erythema along the bladder floor. The bladder neck and urethra were normal. Scope removed patient tolerated the procedure well. We discussed the findings and a 1 month prescription for Macrobid is recommended at discharge for hemorrhagic cystitis. I will plan on seeing her back in 1 month in follow-up. Condition: stable Disposition: floor Specimens:: None Complications:: None
[2021-02-27 16:15] LABS: POC Glucose,Bedside 108 (70-110)
[2021-02-27 16:15] LABS: POC Glucose,Bedside 164 (70-110)
--- NOTE | 2021-02-27 16:37 | HMH.ACPN2 ---
Internal Medicine - PN: Subj *Date: 02/27/21 *Time: 18:52 Interval history: 5-year-old female patient lying in bed resting quietly denies any events overnight. Hemoglobin 7.4, hematocrit 23.2 we will order 2 units of packed red blood cells. Urology to perform cystoscopy today. She is a patient of primary plus, Dr. Karin Silva, Exam Vital signs and Labs for Last 24 Hours: Temp Pulse Resp BP Pulse Ox 98 F 80 17 148/57 H 98 02/27/21 16:00 02/27/21 16:00 02/27/21 07:46 02/27/21 16:00 02/27/21 16:00 Laboratory Results - last 24 hr 02/25/21 20:20: Urine Color Yellow, Urine Appearance Cloudy, Urine pH 6.5, Ur Specific [place] 1.010, Urine Protein 1+, Urine Glucose (UA) Negative, Urine Ketones Negative, Urine Blood 3+, Urine Nitrate Negative, Urine Bilirubin Negative, Urine Urobilinogen 0.2, Ur Leukocyte Esterase 2+ A, Urine RBC Tntc, Urine WBC Tntc, Ur Squamous Epith Cells Occasional, Urine Bacteria Trace 02/26/21 17:31: POC Glucose 125 H 02/26/21 19:58: POC Glucose 257 H 02/27/21 05:44: POC Glucose 168 H 02/27/21 06:16: WBC 4.8, RBC 2.49 L, Hgb 7.4 L, Hct 23.2 L, MCV 93.1, MCH 29.7, MCHC 31.9, RDW 15.0, Plt Count 451 H, MPV 8.9, Neut % (Auto) 51.8, Lymph % (Auto) 36.6, [place] % (Auto) 6.3, Eos % (Auto) 4.7, Baso % (Auto) 0.7, Neut # (Auto) 2.5, Lymph # (Auto) 1.8, [place] # (Auto) 0.3, Eos # (Auto) 0.2, Baso # (Auto) 0.0 02/27/21 06:16: Sodium 129 L, Potassium 4.2, Chloride 93 L, Carbon Dioxide 28, Anion Gap 12.2, BUN 26 H, Creatinine 1.30 H, Estimated Creat Clear 56, Estimated GFR 40 L, Est GFR ( Amer) 48 L, Glucose 155 H, Calcium 8.5 02/27/21 06:16: Blood Type Confirm A Positive 02/27/21 12:47: POC Glucose 108 02/27/21 14:15: Blood Type A Positive, Antibody Screen Negative, Crossmatch (AHG) See Detail 02/27/21 15:31: POC Glucose 164 H I & O for Last 24 hours: Intake & Output 02/24/21 02/25/21 02/26/21 02/27/21 23:59 23:59 23:59 23:59 Intake Total 240 / 240 Output Total 0 / 0 Balance 240 / 240 0 / 0 Weight 209 lb 204 lb 5 oz 206 lb 9.6 oz Microbiology Reports for the Last 24 Hours: Microbiology 02/25/21 20:20 Urine,Clean Catch Urine Culture - Preliminary Gram Negative Rods - Constitutional no acute distress - *Routine HEENT Exam Head: Present: normocephalic Eye: Present: EOMI ENT: Present: mucous membranes moist - *Routine Neck Exam Present: trachea midline. Absent: tracheal deviation - *Routine Respiratory Exam Present: CTA bilaterally. Absent: accessory muscle use - *Routine Cardiovascular Exam Present: RRR, murmur - *Routine Abdominal Exam Present: soft, normoactive bowel sounds. Absent: tenderness, firm - *Routine Extremities Exam Present: full ROM, pulses intact. Absent: cyanosis, clubbing, calf tenderness - *Routine Skin Exam Present: intact, dry, warm. Absent: cyanosis, erythema - *Routine Neurological Exam Present: alert, oriented X3. Absent: motor deficit - Routine Psychiatric Exam Present: normal affect, normal thought process. Absent: auditory hallucinations Assessment and Plan (1) Anemia Status: Acute Qualifiers: Anemia type: unspecified type Qualified Code(s): D64.9 - Anemia, unspecified Category: Medical Code(s): D64.9 - Anemia, unspecified (2) Pneumaturia Status: Acute Category: Medical Code(s): R39.89 - Other symptoms and signs involving the genitourinary system (3) Coronary arteriosclerosis Status: Chronic Category: Medical Code(s): I25.10 - Atherosclerotic heart disease of [place] coronary artery without angina pectoris (4) Diabetes mellitus Status: Chronic Qualifiers: Diabetes mellitus type: type 2 Diabetes mellitus senior care insulin use: with long term care social worker use Diabetes mellitus complication status: with circulatory complication Diabetes mellitus complication detail: with peripheral angiopathy without gangrene Qualified Code(s): E11.51 - Type 2 taryn
[2021-02-27 20:31] LABS: POC Glucose,Bedside 271 (70-110)
[2021-02-28] VITALS (15 sets, daily range): BP systolic 129–155; BP diastolic 57–82; PULSE 70–88; RESP 15–20; TEMP 36.7–37.1; O2SAT 95–100; BMI 36.0
--- NOTE | 2021-02-28 03:51 | PC.NURSE ---
No acute changes, VSS, will continue to monitor.
[2021-02-28 05:38] LABS: POC Glucose,Bedside 236 (70-110)
--- NOTE | 2021-02-28 07:05 | PC.NURSE ---
Assignment was taken under duress at 7pm. Singh Dover RN manager was aware.
[2021-02-28 07:12] LABS: Basophils # 0.1 K/mm3 (0-0.2); Basophils % 1.1 % (0.1-2.0); Eosinophils # 0.2 K/mm3 (0.0-0.4); Eosinophils % 4.5 % (0.1-12.0); Hematocrit 28.8 % (37.0-47.0); Hemoglobin 9.2 g/dL (12.2-16.2); Lymphocytes # 1.2 K/mm3 (0.7-4.5); Lymphocytes % 25.8 % (10-50); Mean Corpuscular Hemoglobin 28.9 pg (27.0-31.2); Mean Corpuscular Volume 90.4 fl (81-99); Mean Platelet Volume 8.2 fl (7.4-10.4); Monocytes # 0.3 K/mm3 (0.1-1.0); Monocytes % 6.4 % (1.7-9.3); Neutrophils # 2.9 K/mm3 (1.8-7.8); Neutrophils % 62.2 % (37.0-80.0); Platelet Count 430 K/mm3 (142-424); Red Blood Count 3.19 M/mm3 (4.20-5.40); Red Cell Distribution Width 16.4 % (11.5-17.5); White Blood Count 4.6 K/mm3 (4.8-10.8)
--- NOTE | 2021-02-28 07:15 | P.PN_ITS ---
Subjective Narrative: Patient states that she does feel better. Urology performed cystoscopy yesterday revealing no fistula but findings of hemorrhagic cystitis. Progress Note: A&P (1) Anemia Status: Acute (2) Pneumaturia Status: Acute (3) Coronary arteriosclerosis Status: Chronic (4) Diabetes mellitus Status: Chronic (5) History of DVT (deep vein thrombosis) Status: Chronic (6) Hyponatremia Status: Acute (7) Renal insufficiency Status: Acute (8) UTI (urinary tract infection) Status: Acute (9) S/P IVC filter Status: Acute (10) Obesity (BMI 30-39.9) Status: Acute Assessment and Plan for All Diagnoses:: Highly doubt appendicitis. Exam Vital signs and Labs for Last 24 Hours: Temp Pulse Resp BP Pulse Ox 98.1 F 70 15 145/63 H 96 02/28/21 06:15 02/28/21 06:15 02/28/21 06:15 02/28/21 06:15 02/28/21 06:15 Laboratory Results - last 24 hr 02/25/21 20:20: Urine Color Yellow, Urine Appearance Cloudy, Urine pH 6.5, Ur Specific [place] 1.010, Urine Protein 1+, Urine Glucose (UA) Negative, Urine Ketones Negative, Urine Blood 3+, Urine Nitrate Negative, Urine Bilirubin Negative, Urine Urobilinogen 0.2, Ur Leukocyte Esterase 2+ A, Urine RBC Tntc, Urine WBC Tntc, Ur Squamous Epith Cells Occasional, Urine Bacteria Trace 02/27/21 06:16: Blood Type Confirm A Positive 02/27/21 12:47: POC Glucose 108 02/27/21 14:15: Blood Type A Positive, Antibody Screen Negative, Crossmatch (AHG) See Detail 02/27/21 15:31: POC Glucose 164 H 02/27/21 20:01: POC Glucose 271 H 02/28/21 05:04: POC Glucose 236 H 02/28/21 06:20: WBC 4.6 L, RBC 3.19 L D, Hgb 9.2 L, Hct 28.8 L, MCV 90.4, MCH 28.9, MCHC 32.0, RDW 16.4, Plt Count 430 H, MPV 8.2, Neut % (Auto) 62.2, Lymph % (Auto) 25.8, [place] % (Auto) 6.4, Eos % (Auto) 4.5, Baso % (Auto) 1.1, Neut # (Auto) 2.9, Lymph # (Auto) 1.2, [place] # (Auto) 0.3, Eos # (Auto) 0.2, Baso # (Auto) 0.1 I & O for Last 24 hours: Intake & Output 02/25/21 02/26/21 02/27/21 02/28/21 11:59 11:59 11:59 11:59 Intake Total 0 / 0 240 / 240 430 / 430 Output Total 0 / 0 0 / 0 Balance 0 / 0 240 / 240 430 / 430 Weight 204 lb 5 oz 206 lb 9.6 oz 203 lb 7 oz Microbiology Reports for the Last 24 Hours: Microbiology 02/25/21 20:20 Urine,Clean Catch Urine Culture - Preliminary Gram Negative Rods - *Routine Abdominal Exam Present: soft Comments: No tenderness in the right lower quadrant. Some tenderness in the right pelvic area, improved
[2021-02-28 07:18] LABS: Anion Gap 9.9 mEq/L (5-15); Blood Urea Nitrogen 26 mg/dl (7-17); Calcium 8.3 mg/dl (8.4-10.2); Carbon Dioxide 28 mmol/L (22.0-30.0); Chloride 94 mmol/L (98-107); Creatinine Clearance Estimated 55 mL/min (50-200); Estimated Glomerular Filt Rate 40 ml/min (>60); GFR (African American) 48 ML/MIN (>60); Glucose 230 mg/dl (74-100); Potassium 3.9 mmoL/L (3.5-5.1); Sodium 128 mmol/L (136-145)
[2021-02-28 09:14] LABS: Thyroid Stimulating Hormone 2.98 uIU/mL (0.465-4.68)
--- NOTE | 2021-02-28 09:29 | HMH.ACPN2 ---
Internal Medicine - PN: Subj *Date: 02/28/21 *Time: 12:40 Interval history: 75-year-old female female patient lying in bed she denies any respiratory distress or pain during the night. She received 2 units of packed red blood cells yesterday for an H&H of 7.4/23.2 this morning H/H 9.2/28.8 she will be going down for a cardiac cath today Exam Vital signs and Labs for Last 24 Hours: Temp Pulse Resp BP Pulse Ox 98.1 F 70 16 151/71 H 98 02/28/21 07:23 02/28/21 07:23 02/28/21 07:23 02/28/21 07:23 02/28/21 08:00 Laboratory Results - last 24 hr 02/25/21 20:20: Urine Color Yellow, Urine Appearance Cloudy, Urine pH 6.5, Ur Specific [place] 1.010, Urine Protein 1+, Urine Glucose (UA) Negative, Urine Ketones Negative, Urine Blood 3+, Urine Nitrate Negative, Urine Bilirubin Negative, Urine Urobilinogen 0.2, Ur Leukocyte Esterase 2+ A, Urine RBC Tntc, Urine WBC Tntc, Ur Squamous Epith Cells Occasional, Urine Bacteria Trace 02/27/21 06:16: Blood Type Confirm A Positive 02/27/21 12:47: POC Glucose 108 02/27/21 14:15: Blood Type A Positive, Antibody Screen Negative, Crossmatch (AHG) See Detail 02/27/21 15:31: POC Glucose 164 H 02/27/21 20:01: POC Glucose 271 H 02/28/21 05:04: POC Glucose 236 H 02/28/21 06:20: WBC 4.6 L, RBC 3.19 L D, Hgb 9.2 L, Hct 28.8 L, MCV 90.4, MCH 28.9, MCHC 32.0, RDW 16.4, Plt Count 430 H, MPV 8.2, Neut % (Auto) 62.2, Lymph % (Auto) 25.8, [place] % (Auto) 6.4, Eos % (Auto) 4.5, Baso % (Auto) 1.1, Neut # (Auto) 2.9, Lymph # (Auto) 1.2, [place] # (Auto) 0.3, Eos # (Auto) 0.2, Baso # (Auto) 0.1 02/28/21 06:20: Sodium 128 L, Potassium 3.9, Chloride 94 L, Carbon Dioxide 28, Anion Gap 9.9, BUN 26 H, Creatinine 1.30 H, Estimated Creat Clear 55, Estimated GFR 40 L, Est GFR ( Amer) 48 L, Glucose 230 H, Calcium 8.3 L 02/28/21 06:20: TSH 2.98 I & O for Last 24 hours: Intake & Output 02/25/21 02/26/21 02/27/21 02/28/21 23:59 23:59 23:59 23:59 Intake Total 240 / 240 180 / 180 250 / 250 Output Total 0 / 0 Balance 240 / 240 180 / 180 250 / 250 Weight 209 lb 204 lb 5 oz 206 lb 9.6 oz 203 lb 7 oz Microbiology Reports for the Last 24 Hours: Microbiology 02/25/21 20:20 Urine,Clean Catch Urine Culture - Final Escherichia coli - Constitutional no acute distress - *Routine HEENT Exam Head: Present: normocephalic Eye: Present: EOMI ENT: Present: mucous membranes moist - *Routine Neck Exam Present: carotid bruit, trachea midline. Absent: JVD - *Routine Respiratory Exam Present: CTA bilaterally. Absent: accessory muscle use - *Routine Cardiovascular Exam Present: RRR, murmur - *Routine Abdominal Exam Present: soft, normoactive bowel sounds. Absent: tenderness, firm - *Routine Extremities Exam Present: full ROM, pulses intact. Absent: cyanosis, calf tenderness - *Routine Skin Exam Present: intact, dry, warm. Absent: cyanosis, erythema - *Routine Neurological Exam Present: alert, oriented X3. Absent: motor deficit - Routine Psychiatric Exam Present: normal affect, normal thought process, cooperative. Absent: auditory hallucinations Assessment and Plan (1) Anemia Status: Acute Qualifiers: Anemia type: unspecified type Qualified Code(s): D64.9 - Anemia, unspecified Category: Medical Code(s): D64.9 - Anemia, unspecified (2) Pneumaturia Status: Acute Category: Medical Code(s): R39.89 - Other symptoms and signs involving the genitourinary system (3) Coronary arteriosclerosis Status: Chronic Category: Medical Code(s): I25.10 - Atherosclerotic heart disease of [place] coronary artery without angina pectoris (4) Diabetes mellitus Status: Chronic Qualifiers: Diabetes mellitus type: type 2 Diabetes mellitus terminal makeup operator insulin use: with chcf use Diabetes mellitus complication status: with circulatory complication Diabetes mellitus complication detail: with peripheral angiopathy without gangrene Qualifie
--- NOTE | 2021-02-28 09:37 | HMH.CNCARD ---
History of Present Illness Consult date: 02/28/21 Requesting physician: Wyatt Estrada Consult reason: aortic stenosis Chief complaint: bleeding from urethra History of present illness: This is a 75-year-old white female who presented to the emergency department with complaints of blood coming from her urethra and in her urine. She also stated that she was passing small blood clots as well. The patient did undergo a CT scan that showed a possible fistula of her bladder. She underwent cystoscopy yesterday and this ruled out a fistula but did show hemorrhagic cystitis. The patient will be on antibiotics for this per urology. The patient had a heart murmur on exam so an echocardiogram was obtained. This has showed critical aortic stenosis. The patient denies any chest pain or pressure. She denies any shortness of breath or edema. She denies any fever, chills, nausea, vomiting, diarrhea, PND or orthopnea. She does complain of some dizziness intermittently at times. She denies any palpitations or racing of the heart. The patient does have a known history of coronary artery disease, peripheral arterial disease with a history of stent thrombosis in her lower extremity, history of multiple DVTs and is status post IVC filter placement. The patient also has a history of fibromuscular dysplasia of the renal arteries, diabetes, hypertension and hyperlipidemia. She was a former patient of Dr. Cox's but is now been following with Dr. Manzano for cardiology since we left the [place] office. Cardiology has been consulted secondary to her severe/critical aortic stenosis. [facility] History I have reviewed the patient's past medical history: Yes Medical History: Reports:: Atherosclerotic Heart Disease, Cancer, Coronary Artery Disease, Deep Vein Thrombosis (s/p IVC filter placement), Diabetes Mellitus Type 2, Hyperlipidemia, Hypertension, Palpitations, Peripheral Artery Disease, Peripheral Vascular Disease Denies:: Diabetes Mellitus Type 1, MRSA *Have you ever received a pneumonia vaccine?: Yes *Have you received a flu vaccine this season?: Yes Other Medical History: Reports: Anemia, Arthritis, Other (FMD of the renal arteries) Other Surgeries: Yes: Angioplasty (stenting), Cancer Surgery, Cardiac Catheterization, Cholecystectomy, Colonoscopy, Hernia Repair, Hysterectomy-Total Amputation: No Fractures: No - *Social History Smoking Status: Never smoker Alcohol Intake: never *Occupational Status:: retired *Travel in the last 8 weeks: None Family Hx:: Cancer, Hyperlipidemia, Hypertension, Stroke Meds Home Medications Medication Instructions Recorded Confirmed Type carvedilol 12.5 mg tablet 12.5 mg PO BID 07/21/17 02/26/21 History ergocalciferol (vitamin D2) 1,250 50,000 unit PO WEEKLY 07/21/17 02/26/21 History mcg (50,000 unit) capsule metoclopramide HCl 10 mg tablet 10 mg PO ACHS 07/21/17 02/26/21 History Alendronate Sodium [Fosamax 70mg 70 mg PO WEEKLY 02/26/21 02/26/21 History Tablet] Aspirin [Aspirin 81mg EC Tab] 81 mg PO DAILY 02/26/21 02/26/21 History Atorvastatin Calcium [Lipitor 80mg 80 mg PO HS 02/26/21 02/26/21 History Tab] Cyclobenzaprine HCl 5 mg PO BIDP PRN 02/26/21 02/26/21 History [Cyclobenzaprine 5mg Tab*] Escitalopram Oxalate 10 mg PO DAILY 02/26/21 02/26/21 History Fenofibrate Nanocrystallized 145 mg PO DAILY 02/26/21 02/26/21 History [Fenofibrate] Furosemide [Furosemide 40MG tAB*] 40 mg PO DAILY 02/26/21 02/26/21 History Insulin Aspart Prot/Insuln Asp 20 unit SQ AC 02/26/21 02/26/21 History [Novolog Mix 70-30 Vial] Isosorbide Mononitrate [Imdur 30mg 30 mg PO DAILY 02/26/21 02/26/21 History ER tablet] Levothyroxine Sodium 50 mcg PO DAILY 02/26/21 02/26/21 History [Levothyroxine 50mcg (0.05mg) Tab] Loratadine [Claritin 10mg 10 mg PO DAILY 02/26/21 02/26/21 History Tablet] Omeprazole [Omeprazole 20mg 20 mg PO DAILY 02/26/21 02/26/21 History Capsule] Potassium Chloride [Klor-con 20
--- NOTE | 2021-02-28 09:50 | CA_ITS ---
APPROVED REPORT Medical Care Evaluation Specialist: Rafat RCS, RVS Laterality: Bilateral Study Quality: Adequate Indications: bilateral carotid bruits Risk Factors Hypertension: Hyperlipidemia Diabetes CAD, PAD HTN, Aortic stenosis, Anemia Doppler Spectral Velocity Analysis ECA (R) 84.10/5.10 cm/s ECA (L) 91.70/0.90 cm/s dICA (R) 152.50/28.30 cm/s dICA (L) 143.90/33.40 cm/s Viv (R) 136.20/21.40 cm/s Viv (L) 104.50/16.30 cm/s pICA (R) 81.50/11.60 cm/s pICA (L) 70.30/12.00 cm/s dCCA (R) 60.50/8.20 cm/s dCCA (L) 80.50/12.90 cm/s pCCA (R) 50.30/6.80 cm/s pCCA (L) 84.00/12.00 cm/s Vert (R) 39.30/5.10 cm/s Vert (L) 35.10/9.40 cm/s ICA/CCA 2.49 ICA/CCA 1.80 Findings Duplex evaluation demonstrates stenosis of the right proximal internal carotid artery in the range of 50-69% with PSV =140 cm/sec, EDV <100 cm/sec, and IC/CC Ratio <4.0. Duplex evaluation demonstrates stenosis of the left proximal internal carotid artery in the range of 20-49% with PSV <140 cm/sec, EDV <100 cm/sec, and IC/CC Ratio <4.0. Duplex evaluation demonstrates antegrade flow of the bilateral Vertebral Arteries. B-Mode Ultrasound demonstrates mild intraluminal plaque in the bilateral common Carotid Arteries. Conclusion Duplex evaluation demonstrates stenosis of the right proximal internal carotid artery in the range of 50-69% with PSV =140 cm/sec, EDV <100 cm/sec, and IC/CC Ratio <4.0. Duplex evaluation demonstrates stenosis of the left proximal internal carotid artery in the range of 20-49% with PSV <140 cm/sec, EDV <100 cm/sec, and IC/CC Ratio <4.0. Duplex evaluation demonstrates antegrade flow of the bilateral Vertebral Arteries. B-Mode Ultrasound demonstrates mild intraluminal plaque in the bilateral common Carotid Arteries. Electronically signed by : Zev Molina MD 02/28/2021 18:14:51
--- NOTE | 2021-02-28 11:43 | SW/DCPLANNER ---
PATIENT IS SCHEDULED FOR A HEART CATH IN THE AM......
[2021-02-28 12:43] LABS: POC Glucose,Bedside 138 (70-110)
--- NOTE | 2021-02-28 18:41 | PC.NURSE ---
Pt has done fine this shift. Pt requires x1 assist to BSC. Pt's urine is clear and tea-colored w/ a strong odor. Pt has turned self in bed, while in bed. NO other acute changes or complaints, will continue to monitor.
[2021-02-28 19:02] LABS: POC Glucose,Bedside 246 (70-110)
[2021-02-28 21:56] LABS: POC Glucose,Bedside 186 (70-110)
[2021-03-01] VITALS (21 sets, daily range): BP systolic 112–168; BP diastolic 56–78; PULSE 65–82; RESP 17–22; TEMP 36.5–36.8; O2SAT 90–100; BMI 37.5
[2021-03-01 01:50] LABS: POC Glucose,Bedside 119 (70-110)
--- NOTE | 2021-03-01 01:53 | PC.NURSE ---
Addendum entered by Odalys Enriquez RN 03/01/21 03:32: Patient has rested well other then the below episode. Patient has been NPO since midnight. Vital signs are stable, call light within reach, will continue to monitor. Original Note: Patient had complaints of feeling sweaty and asked to check her blood sugar. FSBS was 119. This RN checked the patient's vitals and all where WNL. Suggested turning the temperature down in her room, removing blankets and patient did not want to.
--- NOTE | 2021-03-01 06:39 | HMH.GSPN ---
Subjective Narrative: She states that she feels fine . She explains that she is now being worked up for heart valve surgery . Progress Note: A&P (1) Anemia Status: Acute (2) Pneumaturia Status: Acute (3) Coronary arteriosclerosis Status: Chronic (4) Diabetes mellitus Status: Chronic (5) History of DVT (deep vein thrombosis) Status: Chronic (6) Hyponatremia Status: Acute (7) Renal insufficiency Status: Acute (8) UTI (urinary tract infection) Status: Acute (9) S/P IVC filter Status: Acute (10) Obesity (BMI 30-39.9) Status: Acute (11) Anemia Status: Acute (12) PAD (peripheral artery disease) Status: Chronic (13) Aortic stenosis Status: Acute (14) Heart murmur Status: Acute (15) Bilateral carotid bruits Status: Acute (16) Cystitis Status: Acute (17) 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 There remains no evidence of appendicitis or need for acute general surgical intervention. Exam Vital signs and Labs for Last 24 Hours: Temp Pulse Resp BP Pulse Ox 98.0 F 67 20 156/69 H 95 03/01/21 04:39 03/01/21 04:39 03/01/21 04:39 03/01/21 04:39 03/01/21 04:39 Laboratory Results - last 24 hr 02/27/21 14:15: Crossmatch (AHG) See Detail 02/28/21 06:20: WBC 4.6 L, RBC 3.19 L D, Hgb 9.2 L, Hct 28.8 L, MCV 90.4, MCH 28.9, MCHC 32.0, RDW 16.4, Plt Count 430 H, MPV 8.2, Neut % (Auto) 62.2, Lymph % (Auto) 25.8, [place] % (Auto) 6.4, Eos % (Auto) 4.5, Baso % (Auto) 1.1, Neut # (Auto) 2.9, Lymph # (Auto) 1.2, [place] # (Auto) 0.3, Eos # (Auto) 0.2, Baso # (Auto) 0.1 02/28/21 06:20: Sodium 128 L, Potassium 3.9, Chloride 94 L, Carbon Dioxide 28, Anion Gap 9.9, BUN 26 H, Creatinine 1.30 H, Estimated Creat Clear 55, Estimated GFR 40 L, Est GFR ( Amer) 48 L, Glucose 230 H, Calcium 8.3 L 02/28/21 06:20: TSH 2.98 02/28/21 12:35: POC Glucose 138 H 02/28/21 17:42: POC Glucose 246 H 02/28/21 21:38: POC Glucose 186 H 03/01/21 01:43: POC Glucose 119 H I & O for Last 24 hours: Intake & Output 02/26/21 02/27/21 02/28/21 03/01/21 11:59 11:59 11:59 11:59 Intake Total 0 / 0 240 / 240 430 / 430 600 / 600 Output Total 0 / 0 0 / 0 Balance 0 / 0 240 / 240 430 / 430 600 / 600 Weight 204 lb 5 oz 206 lb 9.6 oz 203 lb 7 oz 211 lb 14.4 oz Microbiology Reports for the Last 24 Hours: Microbiology 02/25/21 20:20 Urine,Clean Catch Urine Culture - Final Escherichia coli - Constitutional no acute distress - *Routine Respiratory Exam Absent: respiratory distress - *Routine Cardiovascular Exam Absent: tachycardia - *Routine Abdominal Exam Present: soft
[2021-03-01 07:19] LABS: Basophils # 0.1 K/mm3 (0-0.2); Eosinophils # 0.3 K/mm3 (0.0-0.4); Eosinophils % 4.8 % (0.1-12.0); Hematocrit 29.2 % (37.0-47.0); Hemoglobin 9.3 g/dL (12.2-16.2); Lymphocytes # 2.2 K/mm3 (0.7-4.5); Lymphocytes % 36.3 % (10-50); Mean Corpuscular HGB Conc 31.6 g/dL (31.8-35.4); Mean Corpuscular Hemoglobin 29.1 pg (27.0-31.2); Mean Corpuscular Volume 91.9 fl (81-99); Mean Platelet Volume 7.8 fl (7.4-10.4); Monocytes # 0.5 K/mm3 (0.1-1.0); Platelet Count 415 K/mm3 (142-424); Red Blood Count 3.18 M/mm3 (4.20-5.40); Red Cell Distribution Width 16.2 % (11.5-17.5)
[2021-03-01 07:38] LABS: Alanine Aminotransferase 9 U/L (12-78); Albumin Level 2.6 g/dl (3.5-5.0); Alkaline Phosphatase 33 U/L (38-126); Aspartate Amino Transferase 35 U/L (14-36); Bilirubin,Direct 0.3 mg/dl (0.0-0.4); Bilirubin,Indirect 0.1 mg/dL (0.0-0.9); Bilirubin,Total 0.4 mg/dl (0.2-1.3); Bilirubin,Unconjugated 0.1 mg/dL (0.0-1.1); Chol/HDL Ratio 3.5 (1-3.5); Cholesterol 116 mg/dl (140-200); HDL Cholesterol 33 mg/dl (40-60); Total Protein,Serum 5.5 g/dl (6.3-8.2); Triglycerides 66 mg/dl (30-150); VLDL Cholesterol 13 mg/dL (0-40)
[2021-03-01 07:41] LABS: Anion Gap 8.2 mEq/L (5-15); Blood Urea Nitrogen 27 mg/dl (7-17); Calcium 8.2 mg/dl (8.4-10.2); Carbon Dioxide 30 mmol/L (22.0-30.0); Chloride 95 mmol/L (98-107); Creatinine Clearance Estimated 58 mL/min (50-200); Estimated Glomerular Filt Rate 40 ml/min (>60); GFR (African American) 48 ML/MIN (>60); Glucose 139 mg/dl (74-100); Potassium 4.2 mmoL/L (3.5-5.1); Sodium 129 mmol/L (136-145)
[2021-03-01 07:50] LABS: Direct LDL Cholesterol 61.25 mg/dL (100-129)
--- NOTE | 2021-03-01 09:02 | HMH.PNCARD ---
Subjective Date: 03/01/21 Time: 09:02 Principal diagnosis: severe Interval history: This is a 75-year-old white female who presented to the emergency department with complaints of blood in her urine. The patient was also passing small blood clots at that time. She underwent a CT scan which showed a possible fistula of her bladder. Following this she underwent cystoscopy which ruled out a fistula but did show hemorrhagic cystitis. She is on antibiotics per urology. The patient had an echocardiogram secondary to heart murmur which showed critical aortic stenosis. The patient is still currently denying any chest pain or pressure. She denies any shortness of breath or edema. She denies any fever, chills, nausea, vomiting, diarrhea, PND or orthopnea. She states that her back is hurting from the bed that she is lying in and she just feels really tired from not being up and doing anything. The patient does have some dizziness intermittently but she states that this is mild and does not occur all the time. She denies any palpitations or racing of the heart. She denies any syncope. The patient does have a known history of coronary artery disease, peripheral arterial disease, fibromuscular dysplasia of the renal arteries and a history of a DVT with an IVC filter in place. The patient is scheduled to undergo left and right cardiac catheterization today to evaluate her coronary artery disease and intracardial pressures in preparation for TAVR versus valve replacement secondary to the critical aortic stenosis. The patient's procedure was postponed from yesterday because of her Xarelto and the increased risk of bleeding in this patient who has no reserve secondary to her critical aortic stenosis. Exam Vital signs and Labs for Last 24 Hours: Temp Pulse Resp BP Pulse Ox 98.2 F 67 17 150/72 H 94 L 03/01/21 07:22 03/01/21 07:22 03/01/21 07:22 03/01/21 07:22 03/01/21 08:00 Laboratory Results - last 24 hr 02/28/21 06:20: TSH 2.98 02/28/21 12:35: POC Glucose 138 H 02/28/21 17:42: POC Glucose 246 H 02/28/21 21:38: POC Glucose 186 H 03/01/21 01:43: POC Glucose 119 H 03/01/21 07:00: WBC 6.0 D, RBC 3.18 L, Hgb 9.3 L, Hct 29.2 L, MCV 91.9, MCH 29.1, MCHC 31.6 L, RDW 16.2, Plt Count 415, MPV 7.8, Neut % (Auto) 50.0, Lymph % (Auto) 36.3, [place] % (Auto) 8.0, Eos % (Auto) 4.8, Baso % (Auto) 1.0, Neut # (Auto) 3.0, Lymph # (Auto) 2.2, [place] # (Auto) 0.5, Eos # (Auto) 0.3, Baso # (Auto) 0.1 03/01/21 07:00: Sodium 129 L, Potassium 4.2, Chloride 95 L, Carbon Dioxide 30, Anion Gap 8.2, BUN 27 H, Creatinine 1.30 H, Estimated Creat Clear 58, Estimated GFR 40 L, Est GFR ( Amer) 48 L, Glucose 139 H, Calcium 8.2 L 03/01/21 07:00: Total Bilirubin 0.4, Direct Bilirubin 0.3, Conjugated Bilirubin 0.0, Indirect Bilirubin 0.1, Unconjugated Bilirubin 0.1, AST 35, ALT 9 L, Alkaline Phosphatase 33 L, Total Protein 5.5 L, Albumin 2.6 L, Triglycerides 66, Cholesterol 116 L, LDL Cholesterol Direct 61.25 L, VLDL Cholesterol 13, HDL Cholesterol 33 L, Cholesterol/HDL Ratio 3.5 I & O for Last 24 hours: Intake & Output 02/26/21 02/27/21 02/28/21 03/01/21 23:59 23:59 23:59 23:59 Intake Total 240 / 240 180 / 180 850 / 850 Output Total 0 / 0 0 / 0 Balance 240 / 240 180 / 180 850 / 850 0 / 0 Weight 204 lb 5 oz 206 lb 9.6 oz 203 lb 7.01 oz 211 lb 14.4 oz Microbiology Reports for the Last 24 Hours: Microbiology 02/25/21 20:20 Urine,Clean Catch Urine Culture - Final Escherichia coli Narrative: CNI showed: Duplex evaluation demonstrates stenosis of the right proximal internal carotid artery in the range of 50-69%. Duplex evaluation demonstrates stenosis of the left proximal internal carotid artery in the range of 20-49%. Duplex evaluation demonstrates antegrade flow of the bilateral Vertebral Arteries. B-Mode Ultrasound demonstrates mild intraluminal plaque in the bilateral common Carotid Arteries. - Constitutional
[2021-03-01 11:37] LABS: POC Glucose,Bedside 152 (70-110)
--- NOTE | 2021-03-01 14:26 | PC.NURSE ---
Spoke to early childhood coordinator @ and gave pt information. Coordinator said there are currently no beds available and there are 70 beds on the waiting list, but they will call for updates qshift.
[2021-03-01 16:23] LABS: POC Glucose,Bedside 171 (70-110)
--- NOTE | 2021-03-01 16:57 | HMH.DCSUM ---
General - General Admission date:: 02/26/21 Discharge date: 03/01/21 HPI HPI: this patient presented to the ed with ongoing abd pain Pt states she has been bleeding from her urethra for > 2wk. She saw her PCP about it and was placed on ABX for 10 days, although it has continued. She states occiasionaly she passes small clots. She has not been back to see her PCP despite the continued bleeding. She reports stage 3 kidney failure. Pt also states she was in-pt at [facility] recently for a UTI. Pt reports weakness. Denies fever, chills, n/v/d. States she has been having hematuria for a few weeks. It does not occur every time she urinates. She developed a lower abdominal pain today, which is new. She has dysuria. Denies fever, vomiting, or diarrhea. She said that she felt weak today. She says that she has a history of stage III kidney failure. She was admitted to [facility] in November for severe UTI. She says that she was severely anemic with a hemoglobin of 6.5 and required transfusion. She had upper and lower endoscopy which was negative. She had a CAT scan of her abdomen and she does not think anything significant was found. She her hemoglobin at discharge was 7.8. She had blood drawn at [facility] last week but does not yet know the results. pt admitted with uti and placed on abx Hospital Course Hospital Course: 02/25/21 Abd/Pelvis CT: FINDINGS: Lungs: No mass/infiltrate at either lung base. No pleural effusion. Prominent coronary artery calcification. There is atheromatous calcification of the fibroannulus of the aortic and mitral valves. Atheromatous calcification of the descending thoracic aorta. Liver: The liver is normal in size and attenuation. No intrahepatic biliary dilitation. Gallbladder and bile ducts: Cholecystectomy noted. No evidence of extrahepatic biliary dilatation. Pancreas: Normal. No ductal dilation. Spleen: Normal. No splenomegaly. Adrenal glands: Normal. No mass. Kidneys and ureters: Normal. No hydronephrosis. Stomach and bowel: Unremarkable. No obstruction. No mucosal thickening. Small bowel mesentery is normal. Appendix: There is a calcific density identified at the base of the appendix which could represent appendicoliths that said, the appendix does not appear enlarged. There is no evidence of infiltration of mesoappendix. Intraperitoneal space: Unremarkable. No free air. No significant fluid collection. Vasculature: Prominent atheromatous change of the abdominal aorta, portions of the visceral arteries, iliac, and common femoral arteries. No abdominal aortic aneurysm. Inferior vena cava filter is in place. Lymph nodes: Unremarkable. No enlarged lymph nodes. Urinary bladder: There is air present within the lumen of the bladder. Exact etiology indeterminate. The possibility of recent catheterization is considered. Reproductive: The uterus is not visualized, compatible with prior hysterectomy. Bones/joints: Prominent degenerative changes of the mid and lower lumbar spine. No acute fracture. Soft tissues: There are clips or sutures identified within the anterior abdominal wall compatible with prior abdominal surgery. IMPRESSION: 1. There is an appendicoliths suspect at the base of the appendix. That said, the appendix does not appear enlarged. There is no infiltration of the adjacent mesentery. 2. There is air present within the lumen of the bladder. The possibility of recent bladder catheterization is considered. 3. Prior abdominal surgery has been performed. 4. Hysterectomy is noted. 5. Cholecystectomy is noted. Electronically signed by Heath Barahona MD 02/25/21 ECHO: Conclusion 1. Biatrial enlargement, normal left ventricular size, mild concentric left ventricular hypertrophy, visually estimated ejection fraction 55% with no regional wall motion abnormality, grade 1 diastolic dysfunction seen with tissue Doppler evidence of raise left
[2021-03-02] VITALS (7 sets, daily range): BP systolic 103–161; BP diastolic 47–56; PULSE 60–75; RESP 16–20; TEMP 36.5–36.7; O2SAT 99–100; BMI 37.9
[2021-03-02 00:56] LABS: POC Glucose,Bedside 139 (70-110)
[2021-03-02 00:56] LABS: POC Glucose,Bedside 228 (70-110)
[2021-03-02 05:13] LABS: POC Glucose,Bedside 136 (70-110)
[2021-03-02 06:48] LABS: Basophils # 0.1 K/mm3 (0-0.2); Basophils % 0.8 % (0.1-2.0); Eosinophils # 0.3 K/mm3 (0.0-0.4); Eosinophils % 4.8 % (0.1-12.0); Hematocrit 29.5 % (37.0-47.0); Hemoglobin 9.2 g/dL (12.2-16.2); Lymphocytes # 1.6 K/mm3 (0.7-4.5); Lymphocytes % 29.7 % (10-50); Mean Corpuscular HGB Conc 31.2 g/dL (31.8-35.4); Mean Corpuscular Hemoglobin 28.9 pg (27.0-31.2); Mean Corpuscular Volume 92.5 fl (81-99); Mean Platelet Volume 8.9 fl (7.4-10.4); Monocytes # 0.4 K/mm3 (0.1-1.0); Monocytes % 6.3 % (1.7-9.3); Neutrophils # 3.2 K/mm3 (1.8-7.8); Neutrophils % 58.4 % (37.0-80.0); Platelet Count 398 K/mm3 (142-424); Red Blood Count 3.19 M/mm3 (4.20-5.40); Red Cell Distribution Width 16.1 % (11.5-17.5); White Blood Count 5.5 K/mm3 (4.8-10.8)
[2021-03-02 07:02] LABS: Anion Gap 10.5 mEq/L (5-15); Blood Urea Nitrogen 27 mg/dl (7-17); Calcium 8.5 mg/dl (8.4-10.2); Carbon Dioxide 28 mmol/L (22.0-30.0); Chloride 96 mmol/L (98-107); Creatinine Clearance Estimated 54 mL/min (50-200); Estimated Glomerular Filt Rate 37 ml/min (>60); GFR (African American) 44 ML/MIN (>60); Glucose 150 mg/dl (74-100); Potassium 4.5 mmoL/L (3.5-5.1); Sodium 130 mmol/L (136-145)
--- NOTE | 2021-03-02 08:35 | HMH.PNCARD ---
Subjective Date: 03/02/21 Time: 08:20 Principal diagnosis: severe Interval history: This is a 75-year-old white female who presented to the emergency department initially with complaints of blood in her urine. She underwent cystoscopy and was found to have hemorrhagic cystitis. She is getting antibiotics per urology. The patient had an echocardiogram which showed critical aortic stenosis. The patient was taken to the cardiac catheterization laboratory yesterday to attempt to do a left and right cardiac catheterization. Dr. Cox was unable to gain arterial access in the bilateral groins and he was unable to gain access at the right radial site as well. The procedures were aborted and Dr. Duval was contacted for transfer to undergo aortic valve replacement at a tertiary care facility because it was too risky to proceed with the procedures here. This morning she denies any chest pain or pressure. She denies any shortness of breath or edema. She denies any racing of the heart or syncope. She does complain of dizziness intermittently but this is a mild. Exam Vital signs and Labs for Last 24 Hours: Temp Pulse Resp BP Pulse Ox 98.1 F 66 18 147/55 H 100 03/02/21 07:57 03/02/21 07:57 03/02/21 07:57 03/02/21 07:57 03/02/21 07:57 Laboratory Results - last 24 hr 03/01/21 05:23: POC Glucose 139 H 03/01/21 11:20: POC Glucose 152 H 03/01/21 16:14: POC Glucose 171 H 03/01/21 20:54: POC Glucose 228 H 03/02/21 05:06: POC Glucose 136 H 03/02/21 06:37: WBC 5.5, RBC 3.19 L, Hgb 9.2 L, Hct 29.5 L, MCV 92.5, MCH 28.9, MCHC 31.2 L, RDW 16.1, Plt Count 398, MPV 8.9, Neut % (Auto) 58.4, Lymph % (Auto) 29.7, [place] % (Auto) 6.3, Eos % (Auto) 4.8, Baso % (Auto) 0.8, Neut # (Auto) 3.2, Lymph # (Auto) 1.6, [place] # (Auto) 0.4, Eos # (Auto) 0.3, Baso # (Auto) 0.1 03/02/21 06:37: Sodium 130 L, Potassium 4.5, Chloride 96 L, Carbon Dioxide 28, Anion Gap 10.5, BUN 27 H, Creatinine 1.40 H, Estimated Creat Clear 54, Estimated GFR 37 L, Est GFR ( Amer) 44 L, Glucose 150 H, Calcium 8.5 I & O for Last 24 hours: Intake & Output 02/27/21 02/28/21 03/01/21 03/02/21 23:59 23:59 23:59 23:59 Intake Total 180 / 180 850 / 850 480 / 480 Output Total 0 / 0 0 / 0 Balance 180 / 180 850 / 850 0 / 0 480 / 480 Weight 206 lb 9.6 oz 203 lb 7.01 oz 211 lb 14.4 oz 214 lb 1.525 oz - Constitutional no acute distress, obese - *Routine HEENT Exam Head: Present: normocephalic, atraumatic Eye: Present: EOMI, PERRL ENT: Present: mucous membranes moist - *Routine Neck Exam Present: supple, full ROM, carotid bruit (Bilateral), normal carotid upstroke. Absent: JVD, lymphadenopathy - *Routine Respiratory Exam Present: CTA bilaterally - *Routine Cardiovascular Exam Present: RRR, Normal S1, Normal S2, murmur - *Routine Abdominal Exam Present: soft, normoactive bowel sounds. Absent: tenderness, distended - *Routine Extremities Exam Present: full ROM, pulses intact, normal capillary refill. Absent: cyanosis, clubbing, edema - *Routine Skin Exam Present: intact, warm. Absent: erythema, rash - *Routine Neurological Exam Present: alert, oriented X3, CN II-XII intact. Absent: sensory deficit, motor deficit - Routine Psychiatric Exam Present: normal affect, normal thought process Progress Note: A&P (1) Aortic stenosis Status: Acute (2) Coronary arteriosclerosis Status: Chronic (3) Anemia Status: Acute (4) Pneumaturia Status: Acute (5) Diabetes mellitus Status: Chronic (6) History of DVT (deep vein thrombosis) Status: Chronic (7) Hyponatremia Status: Acute (8) Renal insufficiency Status: Acute (9) UTI (urinary tract infection) Status: Acute (10) S/P IVC filter Status: Acute (11) Obesity (BMI 30-39.9) Status: Acute (12) PAD (peripheral artery disease) Status: Chronic (13) Heart murmur Status: Acute (14) Bilateral carotid bruits Status: Acute (15) Cystitis Sta
--- NOTE | 2021-03-02 09:31 | HMH.ACPN2 ---
Internal Medicine - PN: Subj *Date: 03/02/21 *Time: 09:36 Interval history: 75-year-old female patient resting in bed quietly with eyes closed, awakens to verbal stimuli. She denies any shortness of breath or respiratory distress during the night. Cardiac catheterization was unable to be completed yesterday due to unable to gain access in bilateral femoral arteries and right radial artery. She is awaiting transfer to Exam Vital signs and Labs for Last 24 Hours: Temp Pulse Resp BP Pulse Ox 98.1 F 66 18 147/55 H 100 03/02/21 07:57 03/02/21 07:57 03/02/21 07:57 03/02/21 07:57 03/02/21 07:57 Laboratory Results - last 24 hr 03/01/21 05:23: POC Glucose 139 H 03/01/21 11:20: POC Glucose 152 H 03/01/21 16:14: POC Glucose 171 H 03/01/21 20:54: POC Glucose 228 H 03/02/21 05:06: POC Glucose 136 H 03/02/21 06:37: WBC 5.5, RBC 3.19 L, Hgb 9.2 L, Hct 29.5 L, MCV 92.5, MCH 28.9, MCHC 31.2 L, RDW 16.1, Plt Count 398, MPV 8.9, Neut % (Auto) 58.4, Lymph % (Auto) 29.7, [place] % (Auto) 6.3, Eos % (Auto) 4.8, Baso % (Auto) 0.8, Neut # (Auto) 3.2, Lymph # (Auto) 1.6, [place] # (Auto) 0.4, Eos # (Auto) 0.3, Baso # (Auto) 0.1 03/02/21 06:37: Sodium 130 L, Potassium 4.5, Chloride 96 L, Carbon Dioxide 28, Anion Gap 10.5, BUN 27 H, Creatinine 1.40 H, Estimated Creat Clear 54, Estimated GFR 37 L, Est GFR ( Amer) 44 L, Glucose 150 H, Calcium 8.5 I & O for Last 24 hours: Intake & Output 02/27/21 02/28/21 03/01/21 03/02/21 23:59 23:59 23:59 23:59 Intake Total 180 / 180 850 / 850 480 / 480 Output Total 0 / 0 0 / 0 Balance 180 / 180 850 / 850 0 / 0 480 / 480 Weight 206 lb 9.6 oz 203 lb 7.01 oz 211 lb 14.4 oz 214 lb 1.525 oz - Constitutional no acute distress - *Routine HEENT Exam Head: Present: normocephalic Eye: Present: EOMI ENT: Present: mucous membranes moist - *Routine Neck Exam Present: supple, carotid bruit. Absent: tracheal deviation - *Routine Respiratory Exam Present: CTA bilaterally. Absent: accessory muscle use - *Routine Cardiovascular Exam Present: RRR, murmur - *Routine Abdominal Exam Present: soft, normoactive bowel sounds. Absent: tenderness, firm - *Routine Extremities Exam Present: full ROM, pulses intact. Absent: cyanosis, clubbing, calf tenderness - *Routine Skin Exam Present: intact, dry. Absent: cyanosis, erythema - *Routine Neurological Exam Present: alert, oriented X3. Absent: motor deficit - Routine Psychiatric Exam Present: normal affect, normal thought process. Absent: auditory hallucinations Assessment and Plan (1) Aortic stenosis Status: Acute Qualifiers: Cardiac valve disease etiology: etiology unspecified Qualified Code(s): I35.0 - Nonrheumatic aortic (valve) stenosis Category: Medical Code(s): I35.0 - Nonrheumatic aortic (valve) stenosis (2) Coronary arteriosclerosis Status: Chronic Category: Medical Code(s): I25.10 - Atherosclerotic heart disease of [place] coronary artery without angina pectoris (3) Anemia Status: Acute Qualifiers: Anemia type: unspecified type Qualified Code(s): D64.9 - Anemia, unspecified Category: Medical Code(s): D64.9 - Anemia, unspecified (4) Pneumaturia Status: Acute Category: Medical Code(s): R39.89 - Other symptoms and signs involving the genitourinary system (5) Diabetes mellitus Status: Chronic Qualifiers: Diabetes mellitus type: type 2 Diabetes mellitus [employer] insulin use: with chcf use Diabetes mellitus complication status: with circulatory complication Diabetes mellitus complication detail: with peripheral angiopathy without gangrene Qualified Code(s): E11.51 - Type 2 diabetes mellitus with diabetic peripheral angiopathy without gangrene; Z79.4 - CHCF (current) use of insulin Category: Medical Code(s): E11.9 - Type 2 diabetes mellitus without complications (6) History of DVT (deep vein thrombosis) Status: Chronic Category: Medical Code(s
--- NOTE | 2021-03-02 11:17 | DIET.NUTRFU ---
Pt awaiting transfer. PO intake 100% at breakfast. POC Glucose- 171, 228, 136. Will continue to monitor.
[2021-03-02 12:23] LABS: POC Glucose,Bedside 262 (70-110)
[2021-03-02 17:29] LABS: POC Glucose,Bedside 212 (70-110)
--- NOTE | 2021-03-02 19:30 | PC.NURSE ---
Bed assignment received, this RN gave report to Wojciech Pacheco RN. Pt alert and oriented and able to make needs known. VSS.
[2021-03-02 20:19] LABS: POC Glucose,Bedside 166 (70-110)
--- NOTE | 2021-03-03 00:32 | PC.NURSE ---
PT WAS TRANSFERRED VIA STRETCHER PER EMS TO DIFFERENT FACILITY AT 0032
== END 2021-03-03 00:36 | disposition short-term general hospital (02) ==
LOC: ER 21:16 → 2ND 02-26 01:41
PROVIDERS: Internal Medicine; Nurse Practitioner Family; Urology; Admitting Provider Emergency Medicine; Emergency Provider Emergency Medicine; PCP Nurse Practitioner; Visit Provider Emergency Medicine
PROC: 0TJB8ZZ Inspection of Bladder, Via Natural or Artificial Opening Endoscopic (ICD-10-PCS; CPT 52000; principal; 2021-02-27 11:15)
DX: N39.0 Urinary tract infection, site not specified (principal); Z20.822 Contact with and (suspected) exposure to COVID-19; R39.89 Other symptoms and signs involving the genitourinary system; I35.0 Nonrheumatic aortic (valve) stenosis; I77.3 Arterial fibromuscular dysplasia; N30.91 Cystitis, unspecified with hematuria; E78.5 Hyperlipidemia, unspecified; N18.30 Chronic kidney disease, stage 3 unspecified; E11.22 Type 2 diabetes mellitus with diabetic chronic kidney disease; I12.9 Hypertensive chronic kidney disease with stage 1 through stage 4 chronic kidney disease, or unspecified chronic kidney disease; Z79.4 Long term (current) use of insulin; Z79.899 Other long term (current) drug therapy; Z79.01 Long term (current) use of anticoagulants; D64.9 Anemia, unspecified; Z86.718 Personal history of other venous thrombosis and embolism; E11.51 Type 2 diabetes mellitus with diabetic peripheral angiopathy without gangrene; R09.89 Other specified symptoms and signs involving the circulatory and respiratory systems
CPT/HCPCS: 52000; G0378; 36415; 74176; 80048; 80053; 80061; 80076; 81001; 82962; 83540; 83550; 83690; 84443; 85025; 86850; 87086; 87088; 87186; 93306; 93880; 96365; 97161; 97165; 99152; 99284; C9803; J1335; J1644; P9016; U0003; U0005